=== PATIENT | female | born 1990 | race African-American/Black ===

== ENCOUNTER → 2016-09-28 | Outpatient (CLI) | payer OTHER ==
[2013-11-21 19:00] VITALS: BP 5/63
--- NOTE | 2016-09-28 11:12 | RAD ---
Indication right upper quadrant pain for 2 weeks. Imaging was performed targeted to the right upper quadrant. Note is made of a previous abdominal ultrasound examination 03/12/2009 interpreted as essentially normal. The visualized pancreas appears normal. The visualized inferior vena cava appears normal. There is cholelithiasis. Several stones are seen in the gallbladder. No wall thickening is seen. The common bile duct diameter of 6 mm is at the upper limits of normal. The visualized liver appears normal. The right kidney appears unremarkable. IMPRESSION: Cholelithiasis. Common bile duct at the upper limits of normal in size
== END | disposition home or self-care (01) ==
LOC: US 09:46
PROVIDERS: ATTEND Family Medicine
DX: K80.20 Calculus of gallbladder without cholecystitis without obstruction (principal)
CPT/HCPCS: 76705

== ENCOUNTER 2016-10-19 13:15 | Emergency (ER) | payer OTHER ==
[~2016-10-19] VITALS: Ht 167.6 cm; Wt 90.9 kg
[2016-10-19 13:25] VITALS: BP 126/71
[2016-10-19] MEDS ORDERED: TRAM50TA PO (13:53)
[2016-10-19] MEDS ORDERED: CYCL5TAB PO (13:53)
[2016-10-19] MEDS ORDERED: PRED50TA PO (13:53)
[2016-10-19] MEDS ORDERED: LIDO700A4 TP (13:53)
--- NOTE | 2016-10-19 13:58 | ED.ADGEN ---
Past History Past Medical History: Other Past Surgical History: Smoking: Non-smoker Alcohol Use: None Drug Use: None Adult General Chief Complaint Chief Complaint back pain HPI HPI Patient is a 26 year old female who presents with diffuse low back pain. Pt's had pain for 2 years, intermittent, diffuse low back pain. Reoccurred 2 days ago without new injury. Ibuprofen and Tylenol of unknown doses "don't help" and pt has not attempted anything today. No bowel/bladder incontinence or retention, no saddle sensory change. Worsens with movement/bending. No current radiation into legs. Recently had PCP, didn't prescribe anything but is planning for referral for MRI/pain management. Review of Systems Review of Systems Constitutional: Denies fever or chills [] Eyes: Denies change in visual acuity, redness, or eye pain [] HENT: Denies nasal congestion or sore throat [] Respiratory: Denies cough or shortness of breath [] Cardiovascular: denies chest pain GI: Denies abdominal pain, nausea, vomiting, bloody stools or diarrhea [] : Denies dysuria or hematuria [] Musculoskeletal: per hpi Integument: Denies rash or skin lesions [] Neurologic: Denies headache, focal weakness or sensory changes [] Endocrine: Denies polyuria or polydipsia [] Allergies Allergies Allergies Coded Allergies Type Severity Reaction Last Updated Verified ranitidine Allergy Mild 11/21/13 Yes Physical Exam Physical Exam Constitutional: Well developed, well nourished, no acute distress, non-toxic appearance, obese HENT: Normocephalic, atraumatic, bilateral external ears normal, oropharynx moist, no oral exudates, nose normal. [] Eyes: PERRLA, EOMI, conjunctiva normal, no discharge. [] Neck: Normal range of motion, no tenderness, supple, no stridor. [] Cardiovascular:Heart rate regular rhythm, no murmur [] Lungs & Thorax: Bilateral breath sounds clear to auscultation [] Abdomen: soft, no tenderness, no masses, no pulsatile masses. [] Skin: Warm, dry, no erythema, no rash. [] Back: No tenderness, no CVA tenderness. [] Extremities: No midline stepoffs or tenderness, no cyanosis, no clubbing, ROM intact, no edema. ttp diffuse low back with + ttp left SI joint, neg straight leg test. No erythema or increased warmth. no fluctuance Neurologic: Alert and oriented X 3, normal motor function, normal sensory function, no focal deficits noted. [] Psychologic: Affect normal, judgement normal, mood normal. [] Current Patient Data Vital Signs Vital Signs Date Time Temp Pulse Resp B/P Pulse Ox O2 Delivery O2 Flow Rate FiO2 10/19/16 13:25 98.3 90 20 98 Room Air EKG EKG [] Radiology/Procedures Radiology/Procedures [] Course & Med Decision Making Course & Med Decision Making Pertinent Labs and Imaging studies reviewed. (See chart for details) no acute injury or concerning findings. will treat with prednisone burst, lidoderm patches, tramadol and flexeril. Instructed not to drive while taking flexeril. Final Impression Final Impression Sciatica Low back pain[] Problems: Dragon Disclaimer Dragon Disclaimer This electronic medical record was generated, in whole or in part, using a voice recognition dictation system. ZITA CASTILLO MD Oct 19, 2016 13:58
== END 2016-10-19 14:11 | disposition home or self-care (01) ==
LOC: ER 13:15
DX: M54.30 Sciatica, unspecified side (principal); M54.5 Low back pain; Z88.8 Allergy status to other drugs, medicaments and biological substances
CPT/HCPCS: 99283

== ENCOUNTER 2017-08-14 11:32 | Emergency (ER) | payer OTHER ==
[~2017-08-14] VITALS: Ht 165.1 cm; Wt 92.1 kg
[~2017-08-14 11:32] MED LIST: CYCL5TAB PO; LIDO700A4 TP; PRED50TA PO; TRAM50TA PO
--- NOTE | 2017-08-14 12:09 | PHYS DOC ---
General Chief Complaint: LOWER BACK PAIN OR INJURY Stated Complaint: PROBLEMS WITH Time Seen by MD: 11:34 Source: patient Exam Limitations: no limitations Problems: History of Present Illness Initial Comments Patient is a 27-year-old female who comes to the ED complaining of complication. Patient is 35 weeks gestation 6 para 5 denies any risk factors she follows with Dr. Cobian. She says that for the past 3-1/2 weeks she's been "leaking" vaginally describes as clear fluid. She says for the past 3 days she' s had severe low back and lower abdomen pain. I asked if they were contractions or Isanti Lemus contractions patient states that she does get severe pain with contractions and she cannot differentiate. Denies bloody discharge, continues to feel baby move. Mom and baby VSS, FHT 189 Timing/Duration: other Severity: severe Modifying Factors: improves with other Associated Symptoms: other Allergies: Coded Allergies: ranitidine (Verified Allergy, Mild, 11/21/13) Past Medical History Medical History: no pertinent history Surgical History: other (CS) Para: 5 : 6 LMP (Females 10-50): Social History Smoker: non-smoker Alcohol: none Drugs: none Review of Systems Constitutional: denies chills, denies fever Respiratory: denies cough, denies shortness of breath Cardiovascular: denies chest pain, denies palpitations Gastrointestinal: see HPI Genitourinary: see HPI Musculoskeletal: see HPI Hematologic/Lymphatic: denies blood clots, denies easy bleeding, denies easy bruising Physical Exam General Appearance: no apparent distress Ear, Nose, Throat: hearing grossly normal, normal ENT inspection, normal pharynx Neck: non-tender, supple Respiratory: normal breath sounds, no respiratory distress Cardiovascular: normal peripheral pulses, regular rate, rhythm Gastrointestinal: non tender, soft (gravid c/w dates) Rectal: other (vaginal exam deferred) Back: no CVA tenderness, no vertebral tenderness Extremities: non-tender, normal inspection Neurologic/Psychiatric: forensic manager II-XII nml as tested, no motor/sensory deficits, alert, oriented x 3 Orders, Labs, Meds 1225: I discussed the patient with Dr. Cobian who recommends EMS transfer to the OB floor at [facility] for further evaluation and treatment. I asked if he had any orders for us to initiate prior to transfer and he declined at this time. Departure Time of Disposition: 12:26 Disposition: 02 XFER SHT-TRM HOSP Diagnosis: PROM, 35 wks gest Condition: STABLE Additional Instructions: EMS transfer to [facility] Dr Cobian is accepting for obstetrics admission/evaluation. RIVAS WONG DO Aug 14, 2017 12:09
[2017-08-14 12:48] VITALS: BP 109/68
== END 2017-08-14 13:00 | disposition short-term general hospital (02) ==
LOC: ER 11:32
DX: O26.893 Other specified pregnancy related conditions, third trimester (principal); R10.30 Lower abdominal pain, unspecified; M54.5 Low back pain; Z3A.35 35 weeks gestation of pregnancy; Z88.8 Allergy status to other drugs, medicaments and biological substances
CPT/HCPCS: 99285-25

== ENCOUNTER 2017-11-24 14:35 | Emergency (ER) | payer OTHER ==
[~2017-11-24] VITALS: Ht 167.6 cm; Wt 74.8 kg
--- NOTE | 2017-11-24 15:00 | EKG ---
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
[2017-11-24 15:17] LABS: BASO % 1 % (0-3); EOS # 0.2 x10^3/uL (0.0-0.7); EOS % 4 % (0-3); HEMATOCRIT 37.4 % (36.0-47.0); HEMOGLOBIN 12.4 g/dL (12.0-15.5); LYMPH % 29 % (24-48); MEAN CORPUSCULAR HEMOGLOBIN 27 pg (25-35); MEAN CORPUSCULAR HGB CONC 33 g/dL (31-37); MEAN CORPUSCULAR VOLUME 81 fL (79-100); MONO # 0.3 x10^3/uL (0.0-1.1); MONO % 5 % (0-9); NEUT # 4.2 x10^3uL (1.8-7.7); NEUT % 62 % (31-73); PLATELET COUNT 274 x10^3/uL (140-400); RED CELL DISTRIBUTION WIDTH 16.1 % (11.5-14.5); WHITE BLOOD COUNT 6.8 x10^3/uL (4.0-11.0)
[2017-11-24 15:22] LABS: PREG TEST PT QUAL NEGATIVE (NEG)
[2017-11-24 15:27] LABS: ALBUMIN 3.5 g/dL (3.4-5.0); ALBUMIN/GLOBULIN RATIO 0.9 (1.0-1.7); CALCIUM 8.8 mg/dL (8.5-10.1); CREATININE 0.8 mg/dL (0.6-1.0); GFR 104.9; POTASSIUM 3.5 mmol/L (3.5-5.1); TOTAL BILIRUBIN 0.7 mg/dL (0.2-1.0); TOTAL PROTEIN 7.4 g/dL (6.4-8.2)
--- NOTE | 2017-11-24 15:55 | ED.ADGEN ---
Past History Past Medical History: Other Past Surgical History: Smoking: Non-smoker Alcohol Use: None Drug Use: None Adult General Chief Complaint Chief Complaint Chest pain HPI HPI Patient is a 27-year-old [place] female with history of chronic chest wall pain 7 years who presents with bilateral chest wall pain for the past 2 weeks. Pain is described as continuous, sharp, worse with deep breathing and drinking. No nausea vomiting or sweats. No fever chills, abdominal pain. Denies increased leg pain or swelling. No history of DVT or PE. Patient is not currently on medication. Last menstrual period was 3 weeks ago. Previous tubal ligation. Patient has not been evaluated by a physician for chest pain in greater than 2 years. Patient does not recall previous diagnosis regarding chest pain but states she did suffer cardiac arrest at age 20 during childbirth. Patient currently resides in [facility] but does not have a local care physician.[ ] Review of Systems Review of Systems ROS as per HPI. All other systems were reviewed and found to be within normal limits, except as documented in this note. Current Medications Current Medications Current Medications Medications (Trade) Dose Ordered Sig/Elyssa Start Time Stop Time Status Last Admin Dose Admin Iohexol (Omnipaque 300 Mg/ml) 75 ml 1X ONCE 11/24/17 16:00 11/24/17 16:01 DC 11/24/17 15:58 75 ML Ketorolac Tromethamine (Toradol) 30 mg 1X ONCE 11/24/17 16:00 11/24/17 16:01 DC 11/24/17 15:53 30 MG Allergies Allergies Allergies Coded Allergies Type Severity Reaction Last Updated Verified ranitidine Allergy Mild 11/21/13 Yes Physical Exam Physical Exam Constitutional: Well developed, well nourished, no acute distress, non-toxic appearance. [] HENT: Normocephalic, atraumatic, bilateral external ears normal, oropharynx moist, no oral exudates, nose normal. [] Eyes: PERRLA, EOMI, conjunctiva normal, no discharge. [] Neck: Normal range of motion, no tenderness, supple, no stridor. [] Cardiovascular:Heart rate regular rhythm, no murmur [] Lungs & Thorax: Bilateral breath sounds clear to auscultation [] Abdomen: Bowel sounds normal, soft, no tenderness, no masses, no pulsatile masses. [] Skin: Warm, dry, no erythema, no rash. [] Back: No tenderness, no CVA tenderness. [] Extremities: No tenderness, no cyanosis, no clubbing, ROM intact, no edema. [] Neurologic: Alert and oriented X 3, normal motor function, normal sensory function, no focal deficits noted. [] Psychologic: Affect normal, judgement normal, mood normal. [] Current Patient Data Vital Signs Vital Signs Date Time Temp Pulse Resp B/P (MAP) Pulse Ox O2 Delivery O2 Flow Rate FiO2 11/24/17 14:38 98.2 87 18 98 Lab Results Laboratory Tests Test 11/24/17 14:58 White Blood Count 6.8 x10^3/uL (4.0-11.0) Red Blood Count 4.60 x10^6/uL (3.50-5.40) Hemoglobin 12.4 g/dL (12.0-15.5) Hematocrit 37.4 % (36.0-47.0) Mean Corpuscular Volume 81 fL (79-100) Mean Corpuscular Hemoglobin 27 pg (25-35) Mean Corpuscular Hemoglobin Concent 33 g/dL (31-37) Red Cell Distribution Width 16.1 % (11.5-14.5) H Platelet Count 274 x10^3/uL (140-400) Neutrophils (%) (Auto) 62 % (31-73) Lymphocytes (%) (Auto) 29 % (24-48) Monocytes (%) (Auto) 5 % (0-9) Eosinophils (%) (Auto) 4 % (0-3) H Basophils (%) (Auto) 1 % (0-3) Neutrophils # (Auto) 4.2 x10^3uL (1.8-7.7) Lymphocytes # (Auto) 2.0 x10^3/uL (1.0-4.8) Monocytes # (Auto) 0.3 x10^3/uL (0.0-1.1) Eosinophils # (Auto) 0.2 x10^3/uL (0.0-0.7) Basophils # (Auto) 0.0 x10^3/uL (0.0-0.2) D-Dimer (Cecilia) 1.08 mg/L (0.00-0.50) H Sodium Level 142 mmol/L (136-145) Potassium Level 3.5 mmol/L (3.5-5.1) Chloride Level 106 mmol/L (98-107) Carbon Dioxide Level 26 mmol/L (21-32) Anion Gap 10 (6-14) Blood Urea Nitrogen 9 mg/dL (7-20) Creatinine 0.8 mg/dL (0.6-1.0) Estimated GFR (Cockcroft-Gault) 104.9 BUN/Creatinine Ratio 11 (6-20) Glucose Level 85 mg/dL (70-99) Calcium Level 8.8 mg/dL (8.5-10.1) Total Bilirubin 0.7 mg/dL (0.2-1.0) Aspartate Amino Transferase (AST) 10 U/L (15-37) L Alanine Aminotransferase (ALT) 14 U/L (14-59) Alkaline Phosphatase 88 U/L (46-116) Troponin I Quantitative < 0.017 ng/mL (0-0.055) Total Protein 7.4 g/dL (6.4-8.2) Albumin 3.5 g/dL (3.4-5.0) Albumin/Globulin Ratio 0.9 (1.0-1.7) L Serum Test, Qualitative Negative (NEG) EKG EKG [EKG: Normal sinus rhythm, rate 80, no acute ST-T wave changes, QTC 440. Interpretation by this physician] Radiology/Procedures Radiology/Procedures [CTA chest: No acute cardiopulmonary disease per radiology report.] Course & Med Decision Making Course & Med Decision Making Pertinent Labs and Imaging studies reviewed. (See chart for details) [Nondescript chest wall pain. D-dimer positive. CTA negative. Moderate improvement with Toradol. Recommendations are supportive care with PCP follow- up. Return precautions reviewed.] Final Impression Final Impression [#1 chest pain nonspecific #2 Pleurisy] Dragon Disclaimer Dragon Disclaimer This electronic medical record was generated, in whole or in part, using a voice recognition dictation system. ROLO BISHOP DO November 24, 2017 15:55
[2017-11-24] MEDS ORDERED: KETOROLAC 30 MG/ML VIAL. IV ONE (16:00)
[2017-11-24] MEDS ORDERED: IOHEXOL 300 MG/ML 75 ML VIAL. IV ONE (16:00)
--- NOTE | 2017-11-24 16:27 | RAD ---
CTA of the chest with contrast, 11/24/2017: History: Chest pain Multidetector CT imaging was performed following an IV bolus injection of iodinated contrast material. Multiplanar reconstructions were produced including coronal and sagittal MIP images. The central pulmonary arteries are well opacified and no filling defects are seen to suggest pulmonary emboli. The thoracic aorta is unremarkable. The left ventricle appears prominent. No mediastinal or hilar adenopathy is seen. No pulmonary infiltrate or pleural fluid is evident. IMPRESSION: No CT evidence of central pulmonary emboli. PQRS Compliance Statement: One or more of the following individualized dose reduction techniques were utilized for this examination: 1. Automated exposure control 2. Adjustment of the mA and/or kV according to patient size 3. Use of iterative reconstruction technique Electronically signed by: Bj Weir MD (11/24/2017 4:23 PM) [facility]
[2017-11-24 17:05] VITALS: BP 113/72
== END 2017-11-24 17:18 | disposition home or self-care (01) ==
LOC: ER 14:35
DX: R09.1 Pleurisy (principal); G89.29 Other chronic pain; Z88.8 Allergy status to other drugs, medicaments and biological substances
CPT/HCPCS: 36415; 71275; 80053; 84484; 84703; 85025; 85379; 93005; 96374; 99285; J1885; Q9967